=== PATIENT | male | born 1975 | race Caucasian/White ===

== ENCOUNTER 2018-01-20 20:51 | Inpatient (IN) | payer OTHER ==
[2018-01-20] MEDS ORDERED: MAGNESIUM HYDROXIDE 30ML CUP PO (21:30)
[2018-01-20] MEDS ORDERED: ACETAMINOPHEN 325 MG TAB PO (21:30)
[2018-01-20] MEDS: DIVALPROEX (EC) 250 MG TAB PO (22:52)
[2018-01-20] MEDS: GABAPENTIN 300 MG CAP PO (22:52)
[2018-01-20] MEDS: SODIUM CHLORIDE 1 GM TAB PO (22:53)
[2018-01-20 22:55] LABS: ADD UMIC NO; UR ASCORBIC ACID 40 mg/dL (NEGATIVE); UR BILIRUBIN (Dip) NEGATIVE (NEGATIVE); UR BLOOD (Dip) NEGATIVE (NEGATIVE); UR CLARITY SLIGHTLY CLOUDY (CLEAR); UR COLOR YELLOW (YELLOW); UR GLUCOSE (Dip) NEGATIVE (NEGATIVE); UR KETONES (Dip) TRACE mg/dL (NEGATIVE); UR LEUKOCYTE ESTERASE (Dip) NEGATIVE Leu/ul (NEGATIVE); UR NITRITE (Dip) NEGATIVE (NEGATIVE); UR RBC 0 /HPF (0-5); UR SPECIFIC GRAVITY (Dip) 1.014 (1.003-1.030); UR TOTAL PROTEIN (Dip) NEGATIVE (NEGATIVE); UR UROBILINOGEN (Dip) NEGATIVE (NEGATIVE); UR WBC 1 /HPF (0-5)
[2018-01-20] MEDS: OXYCODONE/ACETAMINOPHEN (5/325) TAB PO (23:09)
[2018-01-21 07:45] LABS: ADD MAN DIFF? NO
[2018-01-21 07:54] LABS: WHITE BLOOD COUNT 8.7 10^3/ul (4.8-10.8)
[2018-01-21 07:54] LABS: BASOPHILS % 0.5 % (0.0-2.0); EOSINOPHILS # 0.2 10^3/ul (0.0-0.5); EOSINOPHILS % 1.9 % (0.0-7.0); HEMATOCRIT 39.7 % (42.0-52.0); HEMOGLOBIN 13.5 g/dl (14.0-18.0); LYMPHOCYTES # 1.6 10^3/ul (0.8-2.9); LYMPHOCYTES % 17.8 % (15.0-51.0); MEAN CORPUSCULAR VOLUME 94.1 fl (82.0-101.0); MEAN PLATELET VOLUME 7.7 fl (7.4-10.4); MONOCYTE # 0.8 10^3/ul (0.3-0.9); NEUTROPHIL # 6.1 10^3/ul (1.6-7.5); NEUTROPHILS % 70.1 % (39.0-77.0); PLATELET COUNT 701 10^3/UL (140-415); RED BLOOD COUNT 4.22 10^6/ul (4.70-6.10); RED CELL DISTRIBUTION WIDTH 11.5 % (11.5-14.5)
[2018-01-21 08:20] LABS: ANION GAP 6 (5-13); CARBON DIOXIDE 35 mmol/L (21-31); CHLORIDE 95 mmol/L (97-110); Estimated GFR > 60 mL/min (>60); POTASSIUM 4.9 mmol/L (3.5-5.1); SODIUM 136 mmol/L (135-144)
[2018-01-21 08:34] LABS: ALANINE AMINOTRANSFERASE 37 IU/L (13-69); ALBUMIN 3.9 g/dl (3.3-4.9); ALBUMIN/GLOBULIN RATIO 1.25; ALKALINE PHOSPHATASE 63 IU/L (42-121); ASPARTATE AMINO TRANSFERASE 23 IU/L (15-46); BILIRUBIN,INDIRECT 0.2 mg/dl (0-1.1); BILIRUBIN,TOTAL 0.2 mg/dl (0.2-1.3); BLOOD UREA NITROGEN 13 mg/dl (7-20); CALCIUM 9.6 mg/dl (8.4-10.2); CREATININE 0.68 mg/dl (0.61-1.24); GLUCOSE 94 mg/dl (70-220)
[2018-01-21] MEDS: PSYLLIUM 28% PACKET PO ×2 (09:00→20:54)
[2018-01-21] MEDS: POLYETHYLENE GLYCOL 17 GM PACKET PO ×2 (09:00→14:06)
[2018-01-21] MEDS: NICOTINE (21 MG/24 HR) PATCH TRANSDERM (09:07)
[2018-01-21] MEDS: DIVALPROEX (EC) 250 MG TAB PO ×2 (09:08→21:11)
[2018-01-21] MEDS: MAGNESIUM OXIDE 400 MG TAB PO (09:08)
[2018-01-21] MEDS: SENNA/DOCUSATE NA (8.6MG/50MG) TAB PO (09:08)
[2018-01-21] MEDS: AMLODIPINE 10 MG TAB PO (09:09)
[2018-01-21] MEDS: LISINOPRIL 20 MG TAB PO (09:09)
[2018-01-21] MEDS: SODIUM CHLORIDE 1 GM TAB PO ×3 (09:09→21:11)
[2018-01-21] MEDS: OXYCODONE/ACETAMINOPHEN (5/325) TAB PO ×4 (09:10→22:53)
[2018-01-21] MEDS: GABAPENTIN 300 MG CAP PO ×3 (09:10→20:47)
[2018-01-21] MEDS: FLUDROCORTISONE 0.1 MG TAB PO (09:17)
[2018-01-21] MEDS: THIAMINE 100 MG TAB PO (17:59)
[2018-01-21] MEDS ORDERED: DIVALPROEX (EC) 250 MG TAB PO (21:00)
[2018-01-22] MEDS: OXYCODONE/ACETAMINOPHEN (5/325) TAB PO ×4 (05:45→20:29)
[2018-01-22] MEDS: GABAPENTIN 300 MG CAP PO ×3 (08:54→20:28)
[2018-01-22] MEDS: FLUDROCORTISONE 0.1 MG TAB PO (08:54)
[2018-01-22] MEDS: THIAMINE 100 MG TAB PO (08:54)
[2018-01-22] MEDS: SODIUM CHLORIDE 1 GM TAB PO ×3 (08:54→20:28)
[2018-01-22] MEDS: LISINOPRIL 20 MG TAB PO (08:55)
[2018-01-22] MEDS: MAGNESIUM OXIDE 400 MG TAB PO (08:55)
[2018-01-22] MEDS: DIVALPROEX (EC) 250 MG TAB PO ×2 (08:55→20:28)
[2018-01-22] MEDS: NICOTINE (21 MG/24 HR) PATCH TRANSDERM (08:56)
[2018-01-22] MEDS: AMLODIPINE 10 MG TAB PO (08:56)
[2018-01-22] MEDS: PSYLLIUM 28% PACKET PO ×2 (08:57→20:30)
[2018-01-22] MEDS: SENNA/DOCUSATE NA (8.6MG/50MG) TAB PO (08:58)
[2018-01-23] MEDS: PSYLLIUM 28% PACKET PO ×2 (08:26→20:17)
[2018-01-23] MEDS: MAGNESIUM OXIDE 400 MG TAB PO (08:26)
[2018-01-23] MEDS: POLYETHYLENE GLYCOL 17 GM PACKET PO (08:26)
[2018-01-23] MEDS: NICOTINE (21 MG/24 HR) PATCH TRANSDERM (08:26)
[2018-01-23] MEDS: SODIUM CHLORIDE 1 GM TAB PO ×3 (08:27→20:17)
[2018-01-23] MEDS: THIAMINE 100 MG TAB PO (08:28)
[2018-01-23] MEDS: GABAPENTIN 300 MG CAP PO ×3 (08:28→20:17)
[2018-01-23] MEDS: DIVALPROEX (EC) 250 MG TAB PO ×2 (08:28→20:17)
[2018-01-23] MEDS: OXYCODONE/ACETAMINOPHEN (5/325) TAB PO ×3 (08:28→17:38)
[2018-01-23] MEDS: SENNA/DOCUSATE NA (8.6MG/50MG) TAB PO (08:28)
[2018-01-23] MEDS: AMLODIPINE 10 MG TAB PO (08:28)
[2018-01-23] MEDS: FLUDROCORTISONE 0.1 MG TAB PO (08:29)
[2018-01-23] MEDS: LISINOPRIL 20 MG TAB PO (08:29)
[2018-01-24] MEDS: THIAMINE 100 MG TAB PO (08:43)
[2018-01-24] MEDS: POLYETHYLENE GLYCOL 17 GM PACKET PO (08:43)
[2018-01-24] MEDS: SENNA/DOCUSATE NA (8.6MG/50MG) TAB PO (08:43)
[2018-01-24] MEDS: SODIUM CHLORIDE 1 GM TAB PO ×3 (08:44→20:50)
[2018-01-24] MEDS: PSYLLIUM 28% PACKET PO ×2 (08:44→20:50)
[2018-01-24] MEDS: GABAPENTIN 300 MG CAP PO ×3 (08:44→20:50)
[2018-01-24] MEDS: MAGNESIUM OXIDE 400 MG TAB PO (08:44)
[2018-01-24] MEDS: AMLODIPINE 10 MG TAB PO (08:44)
[2018-01-24] MEDS: LISINOPRIL 20 MG TAB PO (08:44)
[2018-01-24] MEDS: FLUDROCORTISONE 0.1 MG TAB PO (08:45)
[2018-01-24] MEDS: NICOTINE (21 MG/24 HR) PATCH TRANSDERM (08:45)
[2018-01-24] MEDS: OXYCODONE/ACETAMINOPHEN (5/325) TAB PO ×3 (08:45→19:59)
[2018-01-24] MEDS: DIVALPROEX (EC) 250 MG TAB PO ×2 (08:45→20:50)
[2018-01-25] MEDS: OXYCODONE/ACETAMINOPHEN (5/325) TAB PO ×4 (03:30→19:44)
[2018-01-25] MEDS: GABAPENTIN 300 MG CAP PO ×3 (09:22→21:03)
[2018-01-25] MEDS: SODIUM CHLORIDE 1 GM TAB PO ×3 (09:23→21:03)
[2018-01-25] MEDS: THIAMINE 100 MG TAB PO (09:24)
[2018-01-25] MEDS: FLUDROCORTISONE 0.1 MG TAB PO (09:24)
[2018-01-25] MEDS: LISINOPRIL 20 MG TAB PO (09:24)
[2018-01-25] MEDS: DIVALPROEX (EC) 250 MG TAB PO ×2 (09:25→21:02)
[2018-01-25] MEDS: AMLODIPINE 10 MG TAB PO (09:26)
[2018-01-25] MEDS: MAGNESIUM OXIDE 400 MG TAB PO (09:26)
[2018-01-25] MEDS: SENNA/DOCUSATE NA (8.6MG/50MG) TAB PO (09:26)
[2018-01-25] MEDS: PSYLLIUM 28% PACKET PO ×2 (09:27→21:03)
[2018-01-25] MEDS: NICOTINE (21 MG/24 HR) PATCH TRANSDERM (09:27)
[2018-01-25] MEDS: POLYETHYLENE GLYCOL 17 GM PACKET PO (09:27)
[2018-01-26] MEDS: SODIUM CHLORIDE 1 GM TAB PO (08:20)
[2018-01-26] MEDS: POLYETHYLENE GLYCOL 17 GM PACKET PO (08:20)
[2018-01-26] MEDS: SENNA/DOCUSATE NA (8.6MG/50MG) TAB PO (08:20)
[2018-01-26] MEDS: PSYLLIUM 28% PACKET PO ×2 (08:20→20:53)
[2018-01-26] MEDS: THIAMINE 100 MG TAB PO (08:21)
[2018-01-26] MEDS: GABAPENTIN 300 MG CAP PO ×3 (08:21→20:52)
[2018-01-26] MEDS: LISINOPRIL 20 MG TAB PO (08:21)
[2018-01-26] MEDS: AMLODIPINE 10 MG TAB PO (08:21)
[2018-01-26] MEDS: DIVALPROEX (EC) 250 MG TAB PO ×2 (08:21→20:52)
[2018-01-26] MEDS: MAGNESIUM OXIDE 400 MG TAB PO (08:21)
[2018-01-26] MEDS: OXYCODONE/ACETAMINOPHEN (5/325) TAB PO ×4 (08:21→22:35)
[2018-01-26] MEDS: FLUDROCORTISONE 0.1 MG TAB PO (08:21)
[2018-01-26] MEDS: NICOTINE (21 MG/24 HR) PATCH TRANSDERM (08:22)
[2018-01-26 16:41] LABS: TROPONIN-I < 0.012 ng/ml (0.000-0.120)
[2018-01-27] MEDS: OXYCODONE/ACETAMINOPHEN (5/325) TAB PO ×3 (07:37→20:22)
[2018-01-27] MEDS: SENNA/DOCUSATE NA (8.6MG/50MG) TAB PO (08:18)
[2018-01-27] MEDS: DIVALPROEX (EC) 250 MG TAB PO ×2 (08:18→20:21)
[2018-01-27] MEDS: MAGNESIUM OXIDE 400 MG TAB PO (08:18)
[2018-01-27] MEDS: LISINOPRIL 20 MG TAB PO (08:18)
[2018-01-27] MEDS: GABAPENTIN 300 MG CAP PO ×3 (08:18→20:21)
[2018-01-27] MEDS: AMLODIPINE 10 MG TAB PO (08:19)
[2018-01-27] MEDS: PSYLLIUM 28% PACKET PO ×2 (08:20→20:21)
[2018-01-27] MEDS: POLYETHYLENE GLYCOL 17 GM PACKET PO (08:21)
[2018-01-27] MEDS: NICOTINE (21 MG/24 HR) PATCH TRANSDERM (12:13)
[2018-01-28] MEDS: MAGNESIUM OXIDE 400 MG TAB PO (09:00)
[2018-01-28] MEDS: DIVALPROEX (EC) 250 MG TAB PO ×2 (09:00→20:31)
[2018-01-28] MEDS: LISINOPRIL 20 MG TAB PO (09:00)
[2018-01-28] MEDS: PSYLLIUM 28% PACKET PO ×2 (09:00→21:00)
[2018-01-28] MEDS: SENNA/DOCUSATE NA (8.6MG/50MG) TAB PO (09:00)
[2018-01-28] MEDS: NICOTINE (21 MG/24 HR) PATCH TRANSDERM (09:00)
[2018-01-28] MEDS: AMLODIPINE 10 MG TAB PO (09:00)
[2018-01-28] MEDS: GABAPENTIN 300 MG CAP PO ×3 (09:00→20:31)
[2018-01-28] MEDS: POLYETHYLENE GLYCOL 17 GM PACKET PO (09:00)
[2018-01-28] MEDS: OXYCODONE/ACETAMINOPHEN (5/325) TAB PO ×3 (12:31→22:31)
[2018-01-28] MEDS: HYDROCODONE/APAP (7.5/325) TAB PO (20:31)
[2018-01-29] MEDS: OXYCODONE/ACETAMINOPHEN (5/325) TAB PO ×2 (02:30→07:55)
[2018-01-29] MEDS: DIVALPROEX (EC) 250 MG TAB PO ×2 (07:58→20:18)
[2018-01-29] MEDS: MAGNESIUM OXIDE 400 MG TAB PO (07:58)
[2018-01-29] MEDS: SENNA/DOCUSATE NA (8.6MG/50MG) TAB PO (07:58)
[2018-01-29] MEDS: GABAPENTIN 300 MG CAP PO ×3 (07:59→20:18)
[2018-01-29] MEDS: LISINOPRIL 20 MG TAB PO (08:00)
[2018-01-29] MEDS: AMLODIPINE 10 MG TAB PO (08:01)
[2018-01-29] MEDS: POLYETHYLENE GLYCOL 17 GM PACKET PO (08:03)
[2018-01-29] MEDS: PSYLLIUM 28% PACKET PO ×2 (08:03→20:20)
[2018-01-29] MEDS: NICOTINE (21 MG/24 HR) PATCH TRANSDERM (08:03)
[2018-01-29] MEDS ORDERED: ALPRAZOLAM 0.5 MG TAB PO (12:30)
[2018-01-29] MEDS: FOLIC ACID 1 MG TAB PO (13:24)
[2018-01-29] MEDS: THIAMINE 100 MG TAB PO (13:24)
[2018-01-29] MEDS: CHLORDIAZEPOXIDE 25 MG CAP PO ×2 (14:52→20:18)
[2018-01-29] MEDS ORDERED: ALPRAZOLAM 1 MG TAB PO (14:54)
[2018-01-29 16:48] LABS: AMPHETAMINE/METHAMPHETAMINE Negative (NEGATIVE); BARBITURATES Negative (NEGATIVE); BENZODIAZEPINES Negative (NEGATIVE); CANNABINOIDS Negative (NEGATIVE); COCAINE Negative (NEGATIVE); OPIATES Negative (NEGATIVE)
[2018-01-30] MEDS: OXYCODONE/ACETAMINOPHEN (5/325) TAB PO (05:10)
== END 2018-01-30 06:45 | disposition left against medical advice (07) | DRG 946 ==
LOC: VRC 01-24 16:41
PROC: F08Z1ZZ Dressing Techniques Treatment (ICD-10-PCS; principal; 2018-01-20)
PROC: F07Z5ZZ Bed Mobility Treatment (ICD-10-PCS; 2018-01-20)
DX: S06.6X0D Traumatic subarachnoid hemorrhage without loss of consciousness, subsequent encounter (principal); I10 Essential (primary) hypertension; I72.9 Aneurysm of unspecified site; Z72.0 Tobacco use; F10.10 Alcohol abuse, uncomplicated; R51 Headache
CPT/HCPCS: 70450; 80053; 80307; 81001; 81003; 84484; 85025; 87081; 87086; 92507; 92523; 93005; 97110; 97112; 97116; 97163; 97530; 97535

== ENCOUNTER 2018-02-23 21:24 | Inpatient (IN) | payer OTHER ==
[2018-02-23] MEDS ORDERED: BISACODYL (EC) 5 MG TAB PO (22:00)
[2018-02-23] MEDS ORDERED: morphine 2 MG INJ IV (22:00)
[2018-02-23] MEDS ORDERED: ONDANSETRON 4 MG INJ IV (22:00)
[2018-02-23] MEDS ORDERED: ACETAMINOPHEN 325 MG TAB PO (22:00)
[2018-02-23] MEDS ORDERED: DOCUSATE SODIUM 100 MG CAP PO (22:00)
[2018-02-23] MEDS ORDERED: NACL 0.9% 3 ML SYG IV (22:00)
[2018-02-23] MEDS ORDERED: morphine 4 MG/ML VIAL IV (22:20)
[2018-02-23] MEDS: HYDROCODONE/APAP (5/325) TAB PO (22:24)
[2018-02-23 22:38] LABS: ADD MAN DIFF? NO
[2018-02-23 22:41] LABS: BASOPHIL # 0.1 10^3/ul (0.0-0.1); BASOPHILS % 0.8 % (0.0-2.0); EOSINOPHILS # 0.2 10^3/ul (0.0-0.5); EOSINOPHILS % 2.6 % (0.0-7.0); HEMATOCRIT 41.2 % (42.0-52.0); HEMOGLOBIN 13.4 g/dl (14.0-18.0); LYMPHOCYTES # 2.3 10^3/ul (0.8-2.9); MEAN CORPUSCULAR HEMOGLOBIN 31.5 pg (29.0-33.0); MEAN CORPUSCULAR HGB CONC 32.5 g/dl (32.0-37.0); MEAN CORPUSCULAR VOLUME 96.7 fl (82.0-101.0); MEAN PLATELET VOLUME 7.9 fl (7.4-10.4); MONOCYTE # 0.7 10^3/ul (0.3-0.9); MONOCYTES % 10.5 % (0.0-11.0); NEUTROPHIL # 3.1 10^3/ul (1.6-7.5); NEUTROPHILS % 48.9 % (39.0-77.0); PLATELET COUNT 394 10^3/UL (140-415); RED BLOOD COUNT 4.26 10^6/ul (4.70-6.10); RED CELL DISTRIBUTION WIDTH 13.1 % (11.5-14.5)
[2018-02-23 22:41] LABS: WHITE BLOOD COUNT 6.2 10^3/ul (4.8-10.8)
[2018-02-23 22:57] LABS: ALANINE AMINOTRANSFERASE 24 IU/L (13-69); ALBUMIN/GLOBULIN RATIO 1.73; ALKALINE PHOSPHATASE 72 IU/L (42-121); ANION GAP 6 (5-13); ASPARTATE AMINO TRANSFERASE 19 IU/L (15-46); BILIRUBIN,INDIRECT 0.8 mg/dl (0-1.1); BILIRUBIN,TOTAL 0.8 mg/dl (0.2-1.3); BLOOD UREA NITROGEN 9 mg/dl (7-20); CALCIUM 9.3 mg/dl (8.4-10.2); CARBON DIOXIDE 31 mmol/L (21-31); CHLORIDE 102 mmol/L (97-110); CREATININE 0.64 mg/dl (0.61-1.24); Estimated GFR > 60 mL/min (>60); GLUCOSE 105 mg/dl (70-220); SODIUM 139 mmol/L (135-144); TOTAL PROTEIN 6.3 g/dl (6.1-8.1)
[2018-02-23] MEDS: NICOTINE (14 MG/24 HR) PATCH TRANSDERM (23:28)
[2018-02-24] MEDS ORDERED: LORAZEPAM 2 MG INJ IV (05:00)
[2018-02-24 07:26] LABS: ADD MAN DIFF? NO
[2018-02-24 07:32] LABS: BASOPHIL # 0.1 10^3/ul (0.0-0.1); BASOPHILS % 1.3 % (0.0-2.0); EOSINOPHILS # 0.2 10^3/ul (0.0-0.5); EOSINOPHILS % 4.3 % (0.0-7.0); HEMOGLOBIN 12.9 g/dl (14.0-18.0); LYMPHOCYTES # 1.5 10^3/ul (0.8-2.9); LYMPHOCYTES % 38.1 % (15.0-51.0); MEAN CORPUSCULAR HGB CONC 32.3 g/dl (32.0-37.0); MEAN CORPUSCULAR VOLUME 96.2 fl (82.0-101.0); MEAN PLATELET VOLUME 8.2 fl (7.4-10.4); MONOCYTE # 0.5 10^3/ul (0.3-0.9); NEUTROPHIL # 1.7 10^3/ul (1.6-7.5); NEUTROPHILS % 43.8 % (39.0-77.0); PLATELET COUNT 387 10^3/UL (140-415); RED BLOOD COUNT 4.16 10^6/ul (4.70-6.10); RED CELL DISTRIBUTION WIDTH 13.2 % (11.5-14.5)
[2018-02-24 07:32] LABS: WHITE BLOOD COUNT 3.9 10^3/ul (4.8-10.8)
[2018-02-24 07:52] LABS: HEMOGLOBIN A1C 5.2 % (0-5.9)
[2018-02-24 08:09] LABS: ALANINE AMINOTRANSFERASE 22 IU/L (13-69); ALBUMIN 3.6 g/dl (3.3-4.9); ALBUMIN/GLOBULIN RATIO 1.56; ALKALINE PHOSPHATASE 65 IU/L (42-121); ANION GAP 6 (5-13); ASPARTATE AMINO TRANSFERASE 19 IU/L (15-46); BILIRUBIN,INDIRECT 0.7 mg/dl (0-1.1); BILIRUBIN,TOTAL 0.7 mg/dl (0.2-1.3); BLOOD UREA NITROGEN 12 mg/dl (7-20); CALCIUM 9.2 mg/dl (8.4-10.2); CARBON DIOXIDE 32 mmol/L (21-31); CHLORIDE 102 mmol/L (97-110); CHOLESTEROL 159 mg/dl (100-200); CREATININE 0.74 mg/dl (0.61-1.24); Estimated GFR > 60 mL/min (>60); GLUCOSE 91 mg/dl (70-220); HDL CHOLESTEROL 52 mg/dl (27-67); LDL CHOLESTEROL,CALCULATED 87 mg/dl; SODIUM 140 mmol/L (135-144); TOTAL PROTEIN 5.9 g/dl (6.1-8.1); TRIGLYCERIDES 100 mg/dl (0-149)
[2018-02-24 08:23] LABS: ETHANOL < 10.0 mg/dl (0-0)
[2018-02-24] MEDS: NICOTINE (14 MG/24 HR) PATCH TRANSDERM (08:54)
[2018-02-24] MEDS: MULTIVITAMINS 10 ML, THIAMINE 100 MG, FOLIC ACID 1 MG in SOD CHLORIDE 0.9% 1,000 ML IVPB (08:54)
== END 2018-02-24 19:50 | disposition left against medical advice (07) | DRG 914 ==
LOC: PP2 21:24
DX: S39.94XA Unspecified injury of external genitals, initial encounter (principal); S30.21XA Contusion of penis, initial encounter; I10 Essential (primary) hypertension; F10.10 Alcohol abuse, uncomplicated; F17.200 Nicotine dependence, unspecified, uncomplicated; F15.10 Other stimulant abuse, uncomplicated; Y90.0 Blood alcohol level of less than 20 mg/100 ml; X58.XXXA Exposure to other specified factors, initial encounter
CPT/HCPCS: 72195; 80053; 80061; 80307; 83036; 83735; 84443; 85025